=== PATIENT | male | born 1965 | race Caucasian/White ===

== ENCOUNTER → 2017-03-02 | Outpatient (CLI) | payer OTHER ==
[~2017-03-02] MED LIST: OMNIPAQUE 350 MG/ML, 150 ML BOTTLE ONE
== END | disposition home or self-care (01) ==
LOC: RAD 13:32
PROVIDERS: ATTEND Urology
DX: N28.89 Other specified disorders of kidney and ureter (principal); M47.896 Other spondylosis, lumbar region; N35.014 Post-traumatic urethral stricture, male, unspecified
CPT/HCPCS: 74178; Q9967

== ENCOUNTER → 2018-05-21 | Outpatient (CLI) | payer OTHER ==
[~2018-05-21] MED LIST changes: +OMNIPAQUE 350 MG/ML, 100ML BOTTLE ONE; -OMNIPAQUE 350 MG/ML, 150 ML BOTTLE ONE
== END | disposition home or self-care (01) ==
LOC: RAD 09:54
PROVIDERS: ATTEND Otolaryngology Facial Plastic Surgery
DX: K11.23 Chronic sialoadenitis (principal)
CPT/HCPCS: 70491; Q9967